=== PATIENT | female | born 1955 | race Caucasian/White ===

== ENCOUNTER → 2017-08-06 13:23 | Outpatient (CLI) | payer BC, SELFPAY ==
--- NOTE | 2017-08-06 | CA_ITS ---
PROCEDURE: 2-D M-mode and color Doppler study INDICATIONS FOR THE TEST: Chest pain COPD+ Heart Murmur+ Tobacco Smoking+ Palpitations+ Fatigue Syncope Edema Hypertension+Diabetes Mellitus Rheumatic Fever+ SOB FRANK+Obesity Hyperlipidemia Family History HD Additional History PATIENT INFORMATION HEIGHT: 65 WEIGHT: 107 GENDER: Female B/P: 138/95 2-D/M-MODE INTERPRETATION: 2-D MEASUREMENTS OBSERVED VALUES IN CMS Right Ventricular Dimension (RVDd) 1.4 Interventricular Septum (Thickness)(IVsd) 0.9 Left Ventricular Internal Dimensions(LVIDd) 3.4 Left Ventricular Posterior Wall (Thickness)(LVPWd) 1.0 Aortic Root 2.4 Aortic Cusp Separation 2.0 Left Atrial Dimensions (LAD) 1.4 2D 1. Left atrium is normal size, left ventricle is normal size, there is no concentric left ventricular hypertrophy, visually estimated ejection fraction 55% with no obvious regional wall motion abnormality. 2. The right atrium and right ventricle are normal size and contractility. 3. The aortic, mitral and tricuspid valve are structurally normal. 4. The pulmonic valve is poorly visualized. 5. No significant pericardial effusion noted. DOPPLER INTERROGATION: Doppler interrogation of the aortic, mitral and tricuspid valvular presence of mild mitral and tricuspid regurgitation, tricuspid and jet velocity is insufficient for calculation of the right ventricular systolic pressure, diastolic parameters are within normal range. CONCLUSION: 1. Normal left ventricular size, preserved left ventricular systolic function, visually estimated ejection fraction 55% with no obvious regional wall motion abnormality, diastolic parameters are within normal range. 2. Mild mitral and tricuspid regurgitation. 3. No significant pericardial effusion noted.
--- NOTE | 2017-08-06 14:11 | CT_ITS ---
CT lung screening EXAM: CT LUNG LOW DOSE WO CONTRAST COMPARISON: None HISTORY: 62-year-old female with 46 pack-year smoking history asymptomatic ITS.REASON: CURRENT SMOKER ORDERING PHYSICIAN: Brandie Ruiz MD PATIENT AGE: 62 years TECHNIQUE: The exam was performed on a GE Light Speed [address] scanner using 2.90 mGy CTDI. A low dose helical CT CHEST was performed on a multi-detector scanner. All CT scans at the facility use one or more dose reduction, viz: automated exposure control; ma/kV adjustment per patient size (including targeted exams where dose is matched to indication; i.e. head); or iterative reconstruction technique. The LDCT was performed in a facility that meets the criteria for the screening program. Data regarding this exam was submitted to ACR which is an approved registry. The order for this exam indicates that it came as a result of a lung cancer screening counseling shard decision-making visit that included all the elements required of such a visit including smoking cessation. The radiologist interpreting this exam meets the CMS criteria for the LDCT lung cancer screening program. The exam is reported using the Lung-RADS classification scale and reported to the ACR registry. NOTE: This study was performed for the specific purposes of lung cancer screening and is not an alternative to diagnostic chest CT. RADIATION DOSE: CTDI vol(CT dose Index-volume) = 2.90mG DLP (Dose Length Product) = 99.40 mGcm FINDINGS: There are small mediastinal and hilar lymph nodes some of which are calcified. Normal heart size. Pulmonary fibrotic changes with centrilobular emphysema and bronchial thickening consistent with smoking-related lung disease. There are few calcified nodules consistent with granulomas. A 3 mm noncalcified nodules present present in the left upper lobe. Subpleural opacity is present in the left upper lobe laterally probably related to parenchymal scarring measuring 10 mm. Biapical pleural pleural-parenchymal opacities noted as well right more prominent than left also likely related to scarring. No central obstructing lesions IMPRESSION: 1. Lung RADS Category: 3, probably benign. Biapical and right upper lobe subpleural opacities likely representing scarring. 2. Other findings: Centrilobular emphysema/not be related lung disease RECOMMENDATIONS: [address] chest without and with contrast
== END ==
PROVIDERS: Family Provider Family Medicine; PCP Family Medicine; Visit Provider Family Medicine
DX: R01.1 Cardiac murmur, unspecified (principal); Z87.891 Personal history of nicotine dependence; Z12.2 Encounter for screening for malignant neoplasm of respiratory organs
CPT/HCPCS: 93306

== ENCOUNTER → 2017-09-29 15:37 | Outpatient (CLI) | payer BC, SELFPAY ==
--- NOTE | 2017-09-29 15:43 | XR_ITS ---
XR lumbar spine min 4V Ordering Physician: Brandie Ruiz MD Patient Age: 62 years: Female HISTORY: ITS.REASON: SPRAIN OF LOW BACK Sprain and pain low back. Twisting injury low back one week ago. Pain from lifting TECHNIQUE: Five-view lumbar spine series. COMPARISON :None FINDINGS The lumbar vertebral bodies are intact with no fracture evident. There is some mild disc space narrowing at L5/S1 with mild vacuum phenomena here. AP view shows a mild levocurvature of the upper lumbar spine with slight dextrocurvature above and below this.. Degenerative facet changes most evident at L5/S1 and to lesser L4/5 bilaterally. Early intramarginal osteophytes throughout the L-spine Moderate stool throughout the colon. IMPRESSION: Degenerative levoscoliosis at the mid & upper L-spine. Degenerative facet changes L5/S1 and to lesser L4/5 Mild disc space narrowing L5/S1.
== END ==
PROVIDERS: PCP Family Medicine; Visit Provider Family Medicine
DX: S33.9XXA Sprain of unspecified parts of lumbar spine and pelvis, initial encounter (principal)
CPT/HCPCS: 72110

== ENCOUNTER → 2021-10-25 07:39 | Outpatient (CLI) | payer MEDICARE, SELFPAY ==
--- NOTE | 2021-10-25 07:42 | CT_ITS ---
FINAL REPORT CLINICAL HISTORY: TOBACCO ABUSE COMPARISON: 08/06/2017 FINDINGS: Low-Dose Chest CT Axial images were obtained from the lung apex to the mid abdomen by computed tomography. Low-dose protocol was utilized. CTDI vol (mGy): 2.90 DLP (mGy-cm): 96.38 There are multiple borderline sized mediastinal and axillary lymph nodes which are stable. There is no hilar adenopathy. The heart is proper size. There is no pericardial or pleural effusion. Limited images of the upper abdomen are unremarkable. Lung window images demonstrate mild changes of emphysema and moderate pulmonary scarring. There are several calcified granulomas. Several of the less than 5 mm nodules are not definitely calcified but are stable since the prior and are consistent with benign nodules. No new mass or nodule is identified. IMPRESSION: Lung RADS category 1. Recommend 12 month follow-up low-dose chest CT. Reviewed, Interpreted and Dictated by Carlos Eduardo Velez III, MD Transcribed by Sandra Parker Authenticated and [facility]
--- NOTE | 2021-10-25 07:42 | XR_ITS ---
FINAL REPORT TECHNIQUE: Bone densitometry calculations of the lumbar spine and left hip were obtained. CLINICAL HISTORY: scr osteopenia FINDINGS: DEXA BONE DENSITY AXIAL SKELETON Using L1-4, the bone mineral density of the spine is 0.764 g/cm2, corresponding to T-score of -2.6. Using the left hip, the bone mineral density of the femoral neck is 0.548 g/cm2, corresponding to a T-score of -2.7. NOTE: T-score: Standard deviation compared with peak bone mass of young adult mean. *Following the recommendations of the International Society of Bone Densitometry, classification of hip BMD is based on the lower of two T-scores; total hip or femoral neck. IMPRESSION: Osteoporosis: Lowest T-score is at or below -2.5. This patient's T-score meets the World Health Organization criteria for osteoporosis. Reviewed, Interpreted and Dictated by Carlos Eduardo Velez III, MD Transcribed by Sandra Parker Authenticated and [facility]
--- NOTE | 2021-10-25 07:42 | MM_ITS ---
PROCEDURE INFORMATION: Exam: Bilateral Screening 3D Mammography Exam date and time: 10/25/2021 8:21 AM Age: 66 years old Clinical indication: Screening mammogram TECHNIQUE: Imaging protocol: Bilateral Screening tomosynthesis and 2D mammography including computer-aided detection (CAD) when performed. COMPARISON: MG DMSB DIG MAMM-SCREEN ETHAN W/CAD 11/25/2016 4:32 PM FINDINGS: MAMMOGRAPHY: Breast composition: There are scattered areas of fibroglandular density. Mass: None. Architectural distortion: No new or suspicious architectural distortion. Calcifications: No new or suspicious calcifications are present Asymmetric density: No new or suspicious asymmetric density is present Skin thickening: None. Axillary adenopathy: None. IMPRESSION: No mammographic evidence of malignancy. Recommend annual screening mammography unless otherwise clinically indicated. ASSESSMENT: BI-RADS category 1: Negative
== END ==
PROVIDERS: PCP Family Medicine; Visit Provider Family Medicine
DX: Z87.891 Personal history of nicotine dependence (principal); Z12.2 Encounter for screening for malignant neoplasm of respiratory organs; Z12.31 Encounter for screening mammogram for malignant neoplasm of breast; Z78.0 Asymptomatic menopausal state; M81.0 Age-related osteoporosis without current pathological fracture
CPT/HCPCS: 71271; 77063; 77067; 77080

== ENCOUNTER 2022-11-26 12:40 | Outpatient (CLI) | payer MEDICARE, SELFPAY ==
[2022-11-26 13:00] VITALS: BP 124/72; PULSE 76; RESP 18; O2SAT 98
== END 2022-11-26 13:15 | disposition home or self-care (01) ==
LOC: INF 12:40
PROVIDERS: PCP Family Medicine; Visit Provider Family Medicine
DX: M81.0 Age-related osteoporosis without current pathological fracture (principal)
CPT/HCPCS: 96372; J0897

== ENCOUNTER 2023-06-02 12:43 | Outpatient (CLI) | payer MEDICARE, SELFPAY ==
[2023-06-02 12:55] VITALS: BP 142/78; PULSE 87; RESP 18; TEMP 37; O2SAT 100
[2023-06-02] MEDS: DENOSUMAB 60 MG/ML SYRINGE SQ (12:55)
== END 2023-06-02 13:10 | disposition home or self-care (01) ==
LOC: INF 12:46
PROVIDERS: PCP Psychiatry & Neurology Sleep Medicine; Visit Provider Psychiatry & Neurology Sleep Medicine
DX: M81.0 Age-related osteoporosis without current pathological fracture (principal)
CPT/HCPCS: 96372; J0897

== ENCOUNTER 2023-12-01 12:33 | Outpatient (CLI) | payer MEDICARE, SELFPAY ==
[2023-12-01 12:45] VITALS: BP 151/70; PULSE 82; RESP 18; O2SAT 100
[2023-12-01] MEDS: DENOSUMAB 60 MG/ML SYRINGE SQ (12:45)
== END 2023-12-01 12:51 | disposition home or self-care (01) ==
LOC: INF 12:33
PROVIDERS: PCP Family Medicine; Visit Provider Family Medicine
DX: M81.0 Age-related osteoporosis without current pathological fracture (principal)
CPT/HCPCS: 96372; J0897

== ENCOUNTER 2023-12-22 09:08 | Outpatient (CLI) | payer MEDICARE, SELFPAY ==
--- NOTE | 2023-12-22 09:19 | XR_ITS ---
FINAL REPORT TECHNIQUE: Bone densitometry calculations of the lumbar spine and left hip were obtained. CLINICAL HISTORY: SCREENING COMPARISON: 10/25/2021 FINDINGS: Using L1-4, the bone mineral density of the spine is 0.841 g/cm2, corresponding to T-score of -1.9 and a Z score of 0.1. This is within the range of osteopenia. Using the left hip, the bone mineral density of the femoral neck is 0.554 g/cm2, corresponding to a T-score of -2.7 and a Z-score of -1.0. This is within the range of . NOTE: T-score: Standard deviation compared with peak bone mass of young adult mean. *Following the recommendations of the International Society of Bone densitometry, classification of hip BMD is based on the lower of two T-scores; total hip or femoral neck. IMPRESSION: 1. Bone mineral density of the lumbar spine within the range of osteopenia. 2. Bone mineral density of the left femoral neck within the range of osteoporosis. Reviewed, Interpreted and Dictated by Jayna Champagne MD Transcribed by Em Mcclendon Authenticated and [facility]
--- NOTE | 2023-12-22 09:19 | MM_ITS ---
PROCEDURE INFORMATION: Exam: MG Bilateral Screening 3D Mammography Exam date and time: 12/22/2023 9:17 AM Age: 68 years old Clinical indication: Screening examination TECHNIQUE: Imaging protocol: Bilateral Screening tomosynthesis and 2D mammography including computer-aided detection (CAD) when performed. COMPARISON: 1. MG MM DIG SCREENING MAMM BI W/CAD 10/25/2021 8:21 AM 2. MG DMSB DIG MAMM-SCREEN ETHAN W/CAD 11/25/2016 4:32 PM FINDINGS: MAMMOGRAPHY: Breast composition: There are scattered areas of fibroglandular density. Mass: None. Architectural distortion: None. Calcifications: No suspicious calcifications. Asymmetric density: None. Skin thickening: None. Axillary adenopathy: None. IMPRESSION: No mammographic evidence of malignancy. Annual screening is recommended unless otherwise clinically indicated. ASSESSMENT: BI-RADS Category 1: Negative.
--- NOTE | 2023-12-22 09:20 | CT_ITS ---
FINAL REPORT TECHNIQUE: Thin section axial images were obtained through the lungs using a low-dose technique per lung cancer screening protocol. Reconstruction images were obtained using the axial data. Exam was performed using dose reduction technique. CLINICAL HISTORY: SCREENING current smoker 1 ppd x 52 years COMPARISON: 10/25/2021 FINDINGS: CTDLvol: 2.90 DLP: 96.38 Current smoker 52 pack year history Lungs: Biapical pleural scarring is unchanged. There is evidence of prior granulomatous disease. Several tiny right lower lobe subpleural nodules are stable and may not be calcified. No new mass or nodule identified. There is no evidence of consolidation. Lymph nodes: Small bilateral axillary lymph nodes are unchanged. Small mediastinal lymph nodes are stable. There is no lymphadenopathy by size criteria. Mediastinum: Heart size is normal. Pleura/pericardium: No pleural or pericardial effusion. Other: No acute abnormality in the upper abdomen. IMPRESSION: No suspicious pulmonary nodule or mass. Lung RADS: 1 Recommendation: 12 month low-dose CT follow-up Reviewed, Interpreted and Dictated by Jayna Champagne MD Transcribed by Rosa Rueda Authenticated and [facility]
== END 2023-12-22 23:59 | disposition home or self-care (01) ==
LOC: RAD 09:09
PROVIDERS: PCP Family Medicine; Visit Provider Family Medicine
DX: M81.0 Age-related osteoporosis without current pathological fracture (principal); Z12.31 Encounter for screening mammogram for malignant neoplasm of breast; N60.19 Diffuse cystic mastopathy of unspecified breast; F17.210 Nicotine dependence, cigarettes, uncomplicated
CPT/HCPCS: 71271; 77063; 77067; 77080

== ENCOUNTER 2024-06-03 12:12 | Outpatient (CLI) | payer MEDICARE, SELFPAY ==
[2024-06-03 12:22] VITALS: BP 123/70; PULSE 91; RESP 20; TEMP 36.9; O2SAT 98
[2024-06-03] MEDS: DENOSUMAB 60 MG/ML SYRINGE SUBCUT (12:22)
== END 2024-06-03 12:40 | disposition home or self-care (01) ==
LOC: INF 12:13
PROVIDERS: PCP Family Medicine; Visit Provider Family Medicine
DX: M81.0 Age-related osteoporosis without current pathological fracture (principal)
CPT/HCPCS: 96372; J0897

== ENCOUNTER 2024-12-01 12:27 | Outpatient (CLI) | payer MEDICARE, SELFPAY ==
--- OUTSIDE RECORDS SUMMARY | 2023-12-01 09:30 | XMS_ITS ---
[facility] [address] [place] [id number] Care Team Providers Care Tank Calibrator Name Role Phone Karly Ruiz Primary Care Provider Allergies No Known Allergies Results Component Value Reference Range Notes DEXA Hip and Spine Reviewed date:12/23/2023 09:01:17 AM Interpretation:osteopenia Lspine, osteoporosis femoral neck Performing Lab: Notes/Report: osteopenia Lspine, osteoporosis femoral neck Dexa results osteopenia Lspine, o steoporosis femoral neck Mammogram Reviewed date:01/22/2024 12:49:22 PM Interpretation:Negative Performing Lab: Notes/Report: Negative result Negative CT Scan : Chest, low dose Reviewed date:12/24/2023 12:51:04 PM Interpretation:nothing suspicious, annual f/u Performing Lab: Notes/Report: nothing suspicious, annual f/u REASON FOR VISIT 6 Month Check Up, Needs labs, mammogram, bone density screening, & low dose chest CT Medications Medication SIG (Take, Route, Fr equency, Duration) Notes Start Date End Date Status Prolia 60 MG/ML as directed subcutan eously every 6 months 04/29/2022 Active amLODIPine Besylate 10 MG 1 tablet Orally Once a day; Duration: 90 days Active Triamterene-HCTZ 37.5-25 MG 1 tablet in the morning orally Once a day; Duration: 90 days Active Aspir-Low 81 MG 1 tab(s) orally once a day Active Vital Signs Blood pressure systolic 122 mm Hg 12/01/19 24 Blood pressure diastolic 80 mm Hg 024 Heart Rate 71 /min 12/01/2023 Height 64.50 in 12/01/2023 Weight 109.0 lbs 12/01/2023 BMI 18.42 kg/m2 12/01/2023 Encounters Encounter Location Date Provider Diagnosis [facility]AK[facility]Natividad [address] [facility] [address] [facility] [address] [place] [phone] 12/01/2023 Karly Ruiz Essential hypertensi on I10 ; Osteoporosis M81.0 ; Fibrocystic breast disease (FCBD), unspecified laterality N60.19 and Tobacco use Z72.0 Assessments Encounter Date Diagnosis (ICD Code) Assessment Notes Treatment Notes Treatment Clinical Notes Section Notes 12/01/2023 Essential hypertension (ICD-10 - I10) 12/01/2023 Osteoporosis (ICD-10 - M81.0) 12/01/2023 Fibrocystic breast disease (FCBD), unspecified laterality (ICD-10 - N60.19) 12/01/2023 Tobacco use (ICD-10 - Z72.0) Plan Of Treatment Next Appt Details Follow Up: 6 Months, Reason: Provider Name:Karly Quevedo er, 12/02/2024 01:30:00 PM, [address] [facility] [address] [facility], [address], [place] [phone], Progress Notes * DEBORA ONEALASHERB:1955 (69 yo F)Acc No.[id number]:12/01/2023 Progress Notes Patient: ROD MARTIN Provider: Karly Ruiz M.D. :1955 A ge:68 Y S ex:Female Date:12/01/2023 Address:[address] [place] [address], [place], [phone] Subjective: * Chief Complaints: * 1 . 6 Month Check Up. 2. Needs labs, mammogram, bone density screening, & low dose chest CT. * HPI: C ardiology: The patient is here for a check up on Hypertension. Pt states she is doing good and denies any new concerns. Pt states refills are not needed at this time. Denies : Chest Pain. D enies : Short of Breath. D enies : Dizziness. D enies : Palpitations. E ndocrinology: Had Prolia shot this morning. Due for Dexa Scan. Also mammogram and low dose CT. * ROS: D ERMATOLOGY: no R ellen. n o H nicolas. G ASTROENTEROLOGY: no N ausea. n o V omiting. n o D iarrhea.? U ROLOGY: no D ifficulty urinating. n o B lood in urine. * Medical History: A fib, Prolia injections (had one today). * Surgical History: h ysterectomy 1982, appendectomy 1981, several breast nodules removed (9) . * Hospitalization/Major Diagno stic Procedure: s ee above . * Family History: F ather: . M other: , diagnosed with Hypertension. 1 brother(s) , 1 sister(s) - healthy. 1 son(s) , 2 daughter(s) - healthy. . Brother- Lung Cancer, Son -bladder cancer, Daughter- breast cancer. * Social History: C URRENT TOBACCO USE: Yes S moking Status: P atient does smoke 1 ppd. C affeine: yes, frequency:. Exercise: no. Marital Status: . Recreational drug use: no. Alcohol: No. Sexually active: yes. * Medications: T aking Aspir-Low 81 MG Tablet Delayed Release 1 tab(s) orally once a day , Taking Triamterene-HCTZ 37.5-25 MG Tablet 1 tablet in the morning orally Once a day , Taking amLODIPine Besylate 10 MG Tablet 1 tablet Orally Once a day , Taking Prolia 60 MG/ML Solution Prefilled Syringe as directed subcutaneously every 6 months , Discontinued Vitamin B-12 1000 MCG Tablet 1 tab(s) orally once a day , Medication List reviewed and reconciled with the patient * Allergies: N .K.D.A. Objective: * Vitals: W t:109.0, Temp:97.5, BP:122/80, HR:71, Nurse:MIR, Ht: 64.50, BMI:18.42. * Examination: G eneral Examination: General Appearance: N AD. H EENT: u nremarkable.?Oral cavity: n o lesions, mucosa moist and WNL, no erythema. N kurt: s upple, no lymphadenopathy. C hest: n ormal shape and expansion. H eart: R SR. L ungs: c lear to auscultation. A bdomen: soft and nontender, no organomegaly or masses. N eurologic Exam: I ntact, gait normal. S kin: n ormal, no rash. P eripheral pulses: n ormal . B ack: normal. E xtremities: n o leg edema, tenderness of the mp joint of left thumb, arthritic change bilaterally. Assessment: * Assessment: 1. E ssential hypertension - I10 (Primary) 2 . O steoporosis - M81.0 ? 3 . F ibrocystic breast disease (FCBD), unspecified laterality - N60.19 ?4. T obacco use - Z72.0 Plan: * Treatment: Value Reference Range D exa results osteopenia Lspine, osteoporosis femoral neck * Siri Sotomayor 12/01/2023 2:28: 46 PM > faxed to Siri Briggs 12/02/2023 9:33:32 AM > 12/22/2023 at 11:00amMikala Villeda 12/23/2023 9:01:11 AM > See phone encounter 2.?Fibrocystic breast disease (FCBD), unspecified laterality?Imaging: Mammogram (Performed Date - 12/22/2023)?Negative* Value Reference Range r esult Negative * Siri Sotomayor 12/01/2023 2:29: 02 PM > faxed to Siri Briggs 12/02/2023 9:33:17 AM > 12/22/2023 at 10:30amRichelle Marcial 01/22/2024 12:45:45 PM > , Patient informed of normal results. Richelle Marcial 01/22/2024 12:49:09 PM >Patient informed of normal results. 3.?Tobacco use?Imaging: CT Scan : Chest, low dose (Performed Date - 12/22/2023)?nothing suspicious, annual f/u* Siri Sotomayor 12/01/2023 2:29: 17 PM > faxed to Siri Briggs 12/02/2023 9:32:56 AM > [facility] 12/22/2023 09:30amRichelle Marcial 12/24/2023 12:50:58 PM > , Patient informed of normal results. * Procedure Codes: 3 074F SYST BP LT 130 MM HG, 3079F DIAST BP 80-89 MM HG, G2211 Complex e/m visit add on * Follow Up: 6 Months * Images: Billing Information: * Visit Code: 56384 Office Visit, Est Pt., Level 4. * Procedure Codes: 3074F SYST BP LT 130 MM HG. 3079F DIAST BP 80-89 MM HG. G2211 Complex e/m visit add on. * Electronic signature of Karly Ruiz MD on 12/01/2024 at 12:36 PM EDT Sign off status: Pending * Provider: Karly Ruiz M.D. Date: 0 12/01/2023 Generated for Printi ng/Chrisg/eTransmitting on: 0 12/01/2024 12:36 PM EDT History and Physical Notes * HPI (History of Present Illness) Category Sub-Category Detail Notes Category Not es Cardiology Short of Breath Chest Pain Palpitations Dizziness Examination Category Sub-Category Detail Notes Category Not es General Examination HEENT: unremarkable Heart: RSR Lungs: clear to auscultatio n Abdomen: soft and nontender, no organomegaly or masses Extremities: no leg edema, tender ness of the mp joint of left thumb, arthritic change bilaterally General Appearance: NAD Skin: normal, no rash Neurologic Exam: Intact, gait normal Neck: supple, no lymphaden opathy Oral cavity: no lesions, mucosa m oist and WNL, no erythema Peripheral pulses: normal Back: normal Chest: normal shape and exp ansion
--- OUTSIDE RECORDS SUMMARY | 2024-06-03 09:45 | XMS_ITS ---
Author Organization [facility] Address [address] [place] [id number] Care Team Providers Care Mammographer Name Role Phone Karly Ruiz Primary Care Provider Allergies No Known Allergies Results Component Value Reference Range Notes P-Comprehensive Metabolic Pa alyssa (CMP) Reviewed date:06/04/2024 08:47:46 AM Interpretation:K+ 3.4, bun 25 Performing Lab: Notes/Report: Test performed by [facility] [address] [facility] , [address], [place] [address] Tho Dorantes MD, Instrument Repair Supervisor CLIA: [id number] Sodium 139 135-145 mmol/L Potassium 3.4 3.5-5.3 mmol/L Chloride 99 97-108 mmol/L CO2 26 22-32 mmol/L Glucose 89 65-99 mg/dL BUN 25 8-23 mg/dL Creatinine 1.00 0.50-1.00 mg/dL Calcium 9.7 8.6-10.4 mg/dL eGFR by Creatinine 61 >59 mL/min/1.73m2 Protein 7.1 6.0-8.3 g/dL Albumin 4.3 3.5-5.3 g/dL Alkaline Phosphatase 74 35-121 IU/L ALT (SGPT) 11 <5-47 IU/L AST (SGOT) 18 <5-40 IU/L Bilirubin, Total <0.2 <0.2-1.2 mg/dL A/G Ratio 1.5 1.1-2.5 P-Lipid Panel Reviewed date:06/04/2024 08:47:46 AM Interpretation:Normal Performing Lab: Notes/Report: Test performed by [facility], [address] , [address] , [place] [address] Tho Dorantes MD, Instrument Repair Supervisor CLIA: [id number] Cholesterol 177 <200 mg/dL Triglycerides 66 <150 mg/dL HDL Cholesterol 54 >39 mg/dL Cholesterol / HDL Ratio 3.28 0.00-4.44 Ratio Non-HDL Cholesterol 123 <130 mg/dL LDL Cholesterol (Calculation) 110 <130 mg/dL LDL Cholesterol Levels* Less than 100 mg/dL Optimal 100 to 129 mg/dL Near Optimal/ Above Optimal 130 to 159 mg/dL Borderline High 160 to 189 mg/dL High 190 mg/dL and above Very High * Categories as recommended by the 2004 ATPIII guidelines LDL/HDL Ratio 2.0 <3.3 Ratio LDL Cholesterol Patient History Test Date: 06/03/2024 LDL Results: 110 Units: mg/dL % Change: - REASON FOR VISIT 6 month check Medications Medication SIG (Take, Route, Fr equency, Duration) Notes Start Date End Date Status amLODIPine Besylate 10 MG TAKE 1 TABLET BY MOUTH ONCE DAILY; Duration: 90 Active Triamterene-HCTZ 37.5-25 MG TAKE 1 TABLET BY MOUTH EVERY MORNING; Duration: 90 Active Aspir-Low 81 MG 1 tab(s) orally once a day Active Prolia 60 MG/ML as directed subcutan eously every 6 months 04/29/2022 Active Vital Signs Blood pressure systolic 130 mm Hg 06/03/19 25 Blood pressure diastolic 74 mm Hg 025 Heart Rate 73 /min 06/03/2024 Height 64.50 in 06/03/2024 Weight 116.4 lbs 06/03/2024 BMI 19.67 kg/m2 06/03/2024 Encounters Encounter Location Date Provider Diagnosis [facility] [address] [facility] [address] [facility] [address] [place], [place] [phone] 06/03/2024 Karly Ruiz Essential hypertensi on I10 ; Osteoporosis M81.0 and Mixed hyperlipidemia E78.2 Assessments Encounter Date Diagnosis (ICD Code) Assessment Notes Treatment Notes Treatment Clinical Notes Section Notes 06/03/2024 Essential hypertension (ICD-10 - I10) 06/03/2024 Osteoporosis (ICD-10 - M81.0) 06/03/2024 Mixed hyperlipidemia (ICD-10 - E78.2) Plan Of Treatment Medication Medication Name Sig Start Date Stop Date Notes amLODIPine Besylate 10 MG TAKE 1 TABLET BY MOUTH ONCE DAILY; Duration: 90 Triamterene-HCTZ 37.5-25 MG TAKE 1 TABLE T BY MOUTH EVERY MORNING; Duration: 90 Next Appt Details Follow Up: 6 Months, Reason: Provider Name:Karly Quevedo er, 12/02/2024 01:30:00 PM, [address] [facility] [address] [facility], [address], [place], [place], [id number], Progress Notes * KIMMYGLENROYB:1955 (69 yo F)Acc No.[id number]:06/03/2024 Progress Notes Patient: ROD MARTIN Provider: Karly Ruiz M.D. :1955 A ge:69 Y S ex:Female Date:06/03/2024 Address:[address] [place] [address], [place] A[place], [id number] Subjective: * Chief Complaints: * 1 . 6 month check. * HPI: C ardiology: The pt is here today for a check up on Hypertension. Pt states she does check her BP occasionally and it is doing good. Pt states she is not fasting. Denies : Chest Pain. D enies : Short of Breath. D enies : Dizziness. D enies : Palpitations. E ndocrinology: Dexa compared to 2021 shows improvement in spine from -2,6 to -1.9. Hip unchanged at -2.7. * ROS: D ERMATOLOGY: no R ellen. [...] TOBACCO USE: Yes S moking Status: P jaspal does smoke 1 ppd. C affeine: yes, frequency:. Exercise: no. Marital Status: . Recreational drug use: no. Alcohol: No. Sexually active: yes. * Medications: T aking Aspir-Low 81 MG Tablet Delayed Release 1 tab(s) orally once a day , Taking Prolia 60 MG/ML Solution Prefilled Syringe as directed subcutaneously every 6 months , Taking amLODIPine Besylate 10 MG Tablet TAKE 1 TABLET BY MOUTH ONCE DAILY , Taking Triamterene-HCTZ 37.5-25 MG Tablet TAKE 1 TABLET BY MOUTH EVERY MORNING , Medication List reviewed and reconciled with the patient * Allergies: N .K.D.A. Objective: * Vitals: W t:116.4, Temp:97.7, BP:130/74, HR:73, Nurse:MIR, Ht: 64.50, BMI:19.67. * Examination: G eneral Examination: General Appearance: [...] O steoporosis - M81.0 ? 3 . M ixed hyperlipidemia - E78.2 Plan: * Treatment: Value Reference Range A /G Ratio 1.5 1.1-2.5 - * A lbumin 4.3 3.5-5.3 - g/dL * A lkaline Phosphatase 74 35-121 - IU/L * A LT (SGPT) 11 <5-47 - IU/L * A ST (SGOT) 18 <5-40 - IU/L * B ilirubin, Total <0.2 <0.2-1.2 - mg/dL * B UN 25 H 8-23 - mg/dL * C alcium 9.7 8.6-10.4 - mg/dL * C hloride 99 97-108 - mmol/L * C O2 26 22-32 - mmol/L * C reatinine 1.00 0.50-1.00 - mg/dL * G lucose 89 65-99 - mg/dL * P otassium 3.4 L 3.5-5.3 - mmol/L * S odium 139 135-145 - mmol/L * P rotein 7.1 6.0-8.3 - g/dL * e GFR by Creatinine 61 >59 - mL/min/1.73m2 * Mikala Villeda 06/04/2024 8:47: 40 AM >See phone encounter 2.?Mixed hyperlipidemia?LAB: P-Lipid Panel (Collection Date & Time - 06/03/2024 01:05 PM)?Normal* Value Reference Range C holesterol / HDL Ratio 3.28 0.00-4.44 - Ratio * C holesterol 177 <200 - mg/dL * H DL Cholesterol 54 >39 - mg/dL * L DL Cholesterol (Calculation) 110 <130 - mg/d L * L DL/HDL Ratio 2.0 <3.3 - Ratio * N on-HDL Cholesterol 123 <130 - mg/dL * T riglycerides 66 <150 - mg/dL * Mikala Villeda 06/04/2024 8:47: 40 AM >See phone encounter * Procedure Codes: G 2211 Complex e/m visit add on, 3075F SYST BP GE 130 - 139MM HG, 3078F DIAST BP < 80 MM HG * Follow Up: 6 Months * Images: Billing Information: * Visit Code: 75246 Office Visit, Est Pt., Level 4. * Procedure Codes: G2211 Complex e/m visit add on. 3075F SYST BP GE 130 - 139MM HG. 3078F DIAST BP < 80 MM HG. * Electronic signature of Karly Ruiz MD on 12/01/2024 at 12:36 PM EDT Sign off status: Pending * Provider: Karly Ruiz M.D. Date: 0 06/03/2024 Generated for Cedric blackwood/Ron/eTransmitting on: 0 12/01/2024 12:36 PM EDT History [...]
--- OUTSIDE RECORDS SUMMARY | 2024-12-01 12:36 | XMS_ITS | Patient Health Record ---
[facility] [address] [facility] [address] [place] [id number] Care Team Providers Care Certified Legal Secretary Specialist Name Role Phone Karyl Ruiz Primary Care Provider Allergies No Known Allergies Results Component Value Reference Range Notes P-Comprehensive Metabolic Pa alyssa (CMP) Reviewed date:06/04/2024 08:47:46 AM Interpretation:K+ 3.4, bun 25 Performing Lab: Notes/Report: Test performed by [facility] [address] [place] [address] , [address], [place] [address] Tho Dorantes MD, Code Enforcement Inspector CLIA: [id number] Sodium 139 135-145 mmol/L Potassium 3.4 3.5-5.3 [...] Interpretation:Normal Performing Lab: Notes/Report: Test performed by [facility], [address] , [facility], [place] [address] Tho Dorantes MD, Code Enforcement Inspector CLIA: [id number] Cholesterol 177 <200 mg/dL Triglycerides 66 <150 [...] Results: 110 Units: mg/dL % Change: - Reason For Referral No Information Medications Medication SIG (Take, Route, Fr equency, Duration) Notes Start Date End Date Status Aspir-Low 81 MG 1 tab(s) orally once a day Active amLODIPine Besylate 10 MG 1 tablet Orally Once a day; Duration: 90 days Active Triamterene-HCTZ 37.5-25 MG TAKE 1 TABLET BY MOUTH EVERY MORNING; Duration: 90 Active Prolia 60 MG/ML as directed subcutan eously every 6 months 04/29/2022 Active Immunizations Vaccine Route Administration Date Status Comme nts Prevnar (PCV13) IM Intramuscular 04/11/2021 Administered PNEUMOVAX 23 VACCINE IM Intramuscular 04/29/2022 Administe red Problems Problem Type SNOMED Code ICD Code Onset Dates Problem Status W/U Status Risk Notes Problem Low back pain (414749932) Low back pain (M54.5) Active confirmed Problem Vitamin D deficiency (70788052) Vitamin D deficiency (E55.9) Active confirmed Problem Vitamin B12 deficiency (769455538) Vitamin B12 deficiency (E53.8) Active confirmed Problem Essential hypertension (78948441) Essential hypertension (I10) Active confirmed Problem Mixed hyperlipidemia (529307489) Mixed hyperlipidemia (E78.2) Active confirmed Problem Chronic pain (73429739) Other chronic pain (G89.29) Active confirmed Problem Cervical disc disease (858991509) Cervical disc disease (M50.90) Active confirmed Problem Osteoporosis (54914891) Osteoporosis (M81.0) Active confirmed Problem Fibrocystic breast changes (02633508) Fibrocystic breast disease (FCBD), unspecified laterality (N60.19) Active confirmed Vital Signs Heart Rate 73 /min 06/03/2024 Blood pressure diastolic 74 mm Hg 06/03/2024 Height 64.50 in 06/03/2024 Blood pressure systolic 130 mm Hg 06/03/2024 Weight 116.4 lbs 06/03/2024 BMI 19.67 kg/m2 06/03/2024 Encounters Encounter Location Date Provider Diagnosis [facility] [address] [facility] [address] [place], [place] [phone] 06/03/2024 Karly Ruiz Essential hypertensi on I10 ; Osteoporosis M81.0 and Mixed hyperlipidemia E78.2 [facility] [address] [facility] [address] [place], [place] [phone] 12/23/2023 Karly Ruiz [facility] [address] [place], [place] [phone] 06/04/2024 Karly Ruiz [facility] [address] [facility] [address] [place] [id number] 11/30/2024 Karly Ruiz Osteoporosis M81.0 Assessments Encounter Date Diagnosis (ICD Code) Assessment Notes Treatment Notes Treatment Clinical Notes Section Notes 06/03/2024 Essential hypertension (ICD-10 - I10) 06/03/2024 Osteoporosis (ICD-10 - M81.0) 11/30/2024 Osteoporosis (ICD-10 - M81.0) 06/03/2024 Mixed hyperlipidemia (ICD-10 - E78.2) Plan Of Treatment Next Appt Details Provider Name:Karly Quevedo er, 12/02/2024 01:30:00 PM, [address] [facility] [address] [facility], [address], [place], [phone], Insurance Providers Payer Name Payer Address Payer Phone Subscriber Number Group Number Insured Name Patient Relationship to Insured Coverage Start Date Coverage End Date MEDICARE PART B [address] [address] [place] [id number] [phone] [id number] ROD ONEAL Self - patient is the insured Medical (General) History Medical History History ICD Code afib Prolia injections (had one today) Surgical History Surgery Date(Month/Year) hysterectomy 1982 appendectomy 1981 several breast nodules removed (9) Hospitalization History Reason Date(Month/Year) see above
[2024-12-01] MEDS: DENOSUMAB 60 MG/ML SYRINGE SUBCUT (12:38)
[2024-12-01 12:41] VITALS: BP 99/54; PULSE 74; RESP 18; O2SAT 98
== END 2024-12-01 12:41 | disposition home or self-care (01) ==
LOC: INF 12:31
PROVIDERS: PCP Family Medicine; Visit Provider Family Medicine
DX: M81.0 Age-related osteoporosis without current pathological fracture (principal)
CPT/HCPCS: 96372; J0897